=== PATIENT | female | born 1960 | race Caucasian/White ===

== ENCOUNTER 2019-02-10 16:53 | Inpatient (IN) | payer BC, OTHER ==
[2019-02-10] MEDS ORDERED: HYDROmorphone 1 MG/ML Syringe IVPUSH ONE (16:59)
[2019-02-10] MEDS ORDERED: Ondansetron 4 MG/2 ML SDV IVPUSH ONE (17:00)
[2019-02-10] MEDS ORDERED: Sodium Chloride 0.9% 1,000 ML IV ONE (17:00)
[2019-02-10] MEDS ORDERED: Ketorolac 30 MG/ML SDV IVPUSH ONE (17:00)
[2019-02-10] MEDS ORDERED: Piperacillin/Tazobactam 4.5 GM in Sodium Chloride 0.9% 100 ML IV ONE (17:04)
--- NOTE | 2019-02-10 17:08 | EDM.PDOC ---
ED HPI GENERAL MEDICAL PROBLEM - General Chief Complaint: Abdominal Pain Stated Complaint: UNKNOWN Time Seen by Provider: 02/10/19 16:54 - History of Present Illness INITIAL COMMENTS - FREE TEXT/NARRATIVE: HISTORY AND PHYSICAL: History of present illness: Patient a 58-year-old white female history diverticulitis who presents with concern of acute lower abdominal pain consistent with prior diverticulitis exacerbations. She did take a Percocet and initiate empiric antibiotics but this is worse than usual and associated with chills she denies fever denies urinary symptoms or other concern. Review of systems: As per history of present illness and below otherwise all systems reviewed and negative. Past medical history: As per history of present illness and as reviewed below otherwise noncontributory. Surgical history: As per history of present illness and as reviewed below otherwise noncontributory. Social history: No reported history of drug or alcohol abuse. Family history: As per history of present illness and as reviewed below otherwise noncontributory. Physical exam: HEENT: Atraumatic, normocephalic, pupils reactive, negative for conjunctival pallor or scleral icterus, mucous membranes dry throat clear, neck supple, nontender, trachea midline. Lungs: Clear to auscultation, breath sounds equal bilaterally, chest nontender. Heart: S1S2, regular, negative for clicks, rubs, or JVD. Abdomen: Soft, nondistended, tenderness across lower abdomen greatest in the left abdomen Negative for masses or hepatosplenomegaly. Negative for costovertebral tenderness. Pelvis: Stable nontender. Genitourinary: Deferred. Rectal: Deferred. Extremities: Atraumatic, negative for cords or calf pain. Neurovascular unremarkable. Neuro: Awake, alert, oriented. Cranial nerves II through XII unremarkable. Cerebellum unremarkable. Motor and sensory unremarkable throughout. Exam nonfocal. Diagnostics: CBC CMP UA chest x-ray blood culture [address] abdomen and pelvis Therapeutics: Saline 1 L bolus Zosyn 4.5 mg IV Dilaudid 1 mg IV Toradol 30 mg IV Zofran 4 mg IV Impression: #1 acute abdominal pain with history of diverticulitis Definitive disposition and diagnosis as appropriate pending reevaluation and review of above. Left Lower Abdominal Pain Score (Numeric/FACES): 7 - Related Data Allergies Allergy/AdvReac Type Severity Reaction Status Date / Time No Known Allergies Allergy Verified 02/10/19 17:01 Home Meds: Home Meds Olmesartan [Benicar] 10 mg PO DAILY 03/20/15 [History] hydroCHLOROthiazide [Hydrochlorothiazide] 12.5 mg PO DAILY 03/20/15 [History] Aspirin [Halfprin] 81 mg PO DAILY 10/01/15 [History] [place]-3 Fatty Acids [Fish Oil] 300 mg PO DAILY 10/01/15 [History] Past Medical History HEENT History: Reports: None Cardiovascular History: Reports: Hypertension Respiratory History: Reports: None Gastrointestinal History: Reports: Cholelithiasis, Other (See Below) Other Gastrointestinal History: diverticulitis Genitourinary History: Reports: None D[employer]CH[employer]IC History: Reports: Musculoskeletal History: Reports: None Neurological History: Reports: None Psychiatric History: Reports: None Endocrine/Metabolic History: Reports: None Hematologic History: Reports: None Immunologic History: Reports: None Oncologic (Cancer) History: Reports: None Dermatologic History: Reports: None - Infectious Disease History Infectious Disease History: Reports: Chicken Pox - Past Surgical History Head Surgeries/Procedures: Reports: None Female Surgical History: Reports: Hysterectomy Social & Family History - Family History Family Medical History: Noncontributory - Tobacco Use Smoking Status *Q: Never Smoker - Caffeine Use Caffeine Use: Reports: Soda - Recreational Drug Use Recreational Drug Use: No ED ROS GENERAL - Review of Systems Review Of Systems: ROS reveals no pertinent complaints other than HPI. ED EXAM, GENERAL - Physical Exam Exam: See Below (See dictation) Course - Vital Signs Last Recorded V/S: Last Vital Signs Temp 36.7 C 02/10/19 16:56 Pulse 86 02/10/19 18:10 Resp 15 02/10/19 18:10 BP 111/65 02/10/19 18:10 Pulse Ox 97 02/10/19 18:10 - Orders/Labs/Meds Orders: Active Orders 24 hr Category Date Time Status Abdomen Pelvis wo Cont [CT] Stat Exams 02/10/19 16:59 Taken CULTURE BLOOD [BC] Stat Lab 02/10/19 17:05 Received CULTURE BLOOD [BC] Stat Lab 02/10/19 17:09 Received UA RFX KEEGAN AND CULT IF INDIC [URIN] Stat Lab 02/10/19 16:59 Ordered Blood Culture x2 Reflex Set [OM.PC] Stat Oth 10/20/19 16:59 Ordered Labs: Laboratory Tests 02/10/19 02/10/19 02/10/19 Range/Units 17:05 17:05 17:05 WBC 6.45 (4.0-11.0) K/uL RBC 4.15 L (4.30-5.90) M/uL Hgb 13.0 (12.0-16.0) g/dL Hct 37.9 (36.0-46.0) % MCV 91.3 (80.0-98.0) fL MCH 31.3 (27.0-32.0) pg MCHC 34.3 (31.0-37.0) g/dL RDW Std Deviation 40.9 (28.0-62.0) fl RDW Coeff of Rosa 12 (11.0-15.0) % Plt Count 267 (150-400) K/uL MPV 9.50 (7.40-12.00) fL Neut % (Auto) 83.4 H (48.0-80.0) % Lymph % (Auto) 14.3 L (16.0-40.0) % [place] % (Auto) 0.6 (0.0-15.0) % Eos % (Auto) 1.4 (0.0-7.0) % Baso % (Auto) 0.3 (0.0-1.5) % Neut # (Auto) 5.4 (1.4-5.7) K/uL Lymph # (Auto) 0.9 (0.6-2.4) K/uL [place] # (Auto) 0.0 (0.0-0.8) K/uL Eos # (Auto) 0.1 (0.0-0.7) K/uL Baso # (Auto) 0.0 (0.0-0.1) K/uL Nucleated RBC % 0.0 /100WBC Nucleated RBCs # 0 K/uL INR 0.99 Lactate (0.20-2.00) mmol/L Sodium 142 (136-145) mmol/L Potassium 3.2 L (3.5-5.1) mmol/L Chloride 106 (98-107) mmol/L Carbon Dioxide 27.3 (21.0-32.0) mmol/L BUN 16 (7.0-18.0) mg/dL Creatinine 1.3 H (0.6-1.0) mg/dL Est Cr Clr Drug Dosing 45.87 mL/min Estimated GFR (MDRD) 42.1 ml/min Glucose 109 H (74-106) mg/dL Calcium 8.7 (8.5-10.1) mg/dL Total Bilirubin 0.4 (0.2-1.0) mg/dL AST 14 L (15-37) IU/L ALT 18 (14-63) IU/L Alkaline Phosphatase 69 (46-116) U/L Total Protein 7.4 (6.4-8.2) g/dL Albumin 3.7 (3.4-5.0) g/dL Globulin 3.7 (2.6-4.0) g/dL Albumin/Globulin Ratio 1.0 (0.9-1.6) Lipase 191 (73-393) U/L 02/10/19 Range/Units 17:05 WBC (4.0-11.0) K/uL RBC (4.30-5.90) M/uL Hgb (12.0-16.0) g/dL Hct (36.0-46.0) % MCV (80.0-98.0) fL MCH (27.0-32.0) pg MCHC (31.0-37.0) g/dL RDW Std Deviation (28.0-62.0) fl RDW Coeff of Rosa (11.0-15.0) % Plt Count (150-400) K/uL MPV (7.40-12.00) fL Neut % (Auto) (48.0-80.0) % Lymph % (Auto) (16.0-40.0) % [place] % (Auto) (0.0-15.0) % Eos % (Auto) (0.0-7.0) % Baso % (Auto) (0.0-1.5) % Neut # (Auto) (1.4-5.7) K/uL Lymph # (Auto) (0.6-2.4) K/uL [place] # (Auto) (0.0-0.8) K/uL Eos # (Auto) (0.0-0.7) K/uL Baso # (Auto) (0.0-0.1) K/uL Nucleated RBC % /100WBC Nucleated RBCs # K/uL INR Lactate 1.9 (0.20-2.00) mmol/L Sodium (136-145) mmol/L Potassium (3.5-5.1) mmol/L Chloride (98-107) mmol/L Carbon Dioxide (21.0-32.0) mmol/L BUN (7.0-18.0) mg/dL Creatinine (0.6-1.0) mg/dL Est Cr Clr Drug Dosing mL/min Estimated GFR (MDRD) ml/min Glucose (74-106) mg/dL Calcium (8.5-10.1) mg/dL Total Bilirubin (0.2-1.0) mg/dL AST (15-37) IU/L ALT (14-63) IU/L Alkaline Phosphatase (46-116) U/L Total Protein (6.4-8.2) g/dL Albumin (3.4-5.0) g/dL Globulin (2.6-4.0) g/dL Albumin/Globulin Ratio (0.9-1.6) Lipase (73-393) U/L Meds: Medications Discontinued Medications Generic Name Dose Route Start Last Admin Trade Name Freq PRN Reason Stop Dose Admin Hydromorphone HCl 1 mg 02/10/19 16:59 02/10/19 17:14 Dilaudid IVPUSH 02/10/19 17:00 1 mg ONETIME ONE Administration Sodium Chloride 1,000 mls @ 999 mls/hr 02/10/19 17:00 02/10/19 17:10 Normal Saline IV 02/10/19 18:00 999 mls/hr .Bolus ONE Administration Piperacillin Sod/Tazobactam 100 mls @ 100 mls/hr 02/10/19 17:04 02/10/19 17: 35 Sod 4.5 gm/ Sodium Chloride IV 02/10/19 18:03 100 mls/hr ONETIME ONE Administration Ketorolac Tromethamine 30 mg 02/10/19 17:00 02/10/19 17:13 Toradol IVPUSH 02/10/19 17:01 30 mg ONETIME ONE Administration Ondansetron HCl 4 mg 02/10/19 17:00 02/10/19 17:11 Zofran IVPUSH 02/10/19 17:01 4 mg ONETIME ONE Administration Departure - Departure Time of Disposition: 18:49 Disposition: Refer to Observation Condition: Good Clinical Impression: Abdominal pain Qualifiers: Abdominal location: left lower quadrant Qualified Code(s): R10.32 - Left lower quadrant pain Diverticulitis Qualifiers: Diverticulitis site: large intestine Diverticulitis bleeding: without bleeding Diverticulitis complication: without perforation or abscess Qualified Code(s): K57.32 - Diverticulitis of large intestine without perforation or abscess without bleeding - Discharge Information Referrals: PCP,Unknown [Primary Care Provider] - Forms: ED Department Discharge - My Orders Last 24 Hours: My Active Orders 02/10/19 16:59 Abdomen Pelvis wo Cont [CT] Stat UA RFX KEEGAN AND CULT IF INDIC [URIN] Stat Blood Culture x2 Reflex Set [OM.PC] Stat 02/10/19 17:05 CULTURE BLOOD [BC] Stat 02/10/19 17:09 CULTURE BLOOD [BC] Stat - Assessment/Plan Last 24 Hours: My Active Orders 02/10/19 16:59 Abdomen Pelvis wo Cont [CT] Stat UA RFX KEEGAN AND CULT IF INDIC [URIN] Stat Blood Culture x2 Reflex Set [OM.PC] Stat 02/10/19 17:05 CULTURE BLOOD [BC] Stat 02/10/19 17:09 CULTURE BLOOD [BC] Stat
[2019-02-10 17:37] LABS: CARBON DIOXIDE,CO2 27.3 mmol/L (21.0-32.0); POTASSIUM,K 3.2 mmol/L (3.5-5.1)
--- NOTE | 2019-02-10 18:18 | CR ---
INDICATION: LOwer chest pain TECHNIQUE: Chest 1 view. COMPARISON: 10/01/15 FINDINGS: Cardiovascular and mediastinum: Heart size and vasculature are normal in caliber and appearance. Mediastinum is within normal limits. Lungs and pleural space: Lungs are clear. No sign of infiltrate or mass. No sign of pleural effusion. No pneumothorax. Bones and soft tissues: No significant findings. IMPRESSION: Unremarkable chest. Dictated by: Guido Tomas MD @ 02/10/2019 18:16:37 (Electronically Signed)
--- NOTE | 2019-02-10 19:13 | CT ---
INDICATION: Lower abdominal pain. History of diverticulitis. TECHNIQUE: CT abdomen and pelvis acquired without IV contrast. COMPARISON: CT 10/01/2015 FINDINGS: Lower chest: Minimal bibasilar atelectasis. Liver: Unremarkable. Spleen: No acute abnormality. Pancreas: Unremarkable. Gallbladder and bile ducts: Mild prominence of the common bile duct is likely secondary to reservoir effect of cholecystectomy. Kidneys: Scarring and atrophy of the upper pole of the left kidney again noted. No acute renal abnormality. Adrenal glands: Unremarkable. GI tract: Tiny hiatal hernia. There is colonic diverticulosis. There is wall thickening and pericolonic inflammatory fat stranding adjacent to the sigmoid colon. Associated thickening of the left lateral pelvic fascia. There appear to be a few small foci of extraluminal gas consistent with microperforation and small phlegmon measuring 2.4 x 1.4 cm (image 145). No drainable abscess. The appendix is normal. No acute small bowel abnormality. Vascular structures: No sign of aneurysm. Circumaortic left renal vein. Lymph nodes: Unremarkable. Miscellaneous: No ascites. No free air. Tiny fat containing umbilical hernia. Pelvic Organs: Urinary bladder is normal. Hysterectomy. Bones: No acute abnormality. No suspicious bone lesion. Stable small sclerotic lesion in the left iliac bone likely representing a bone island. IMPRESSION: Acute diverticulitis of the sigmoid colon. A few small foci of extraluminal gas consistent with microperforation and small phlegmon formation. No generalized free intraperitoneal gas. No drainable fluid collection. Dictated by Sin Pollock MD @ 02/10/2019 7:10:16 PM Please note that all CT scans at this facility use dose modulation, iterative reconstruction, and/or weight-based dosing when appropriate to reduce radiation dose to as low as reasonably achievable. Dictated by: Sin Pollock MD @ 02/10/2019 19:10:25 (Electronically Signed)
[2019-02-10] MEDS: Sodium Chloride 0.9% 1,000 ML IV SCH (20:52)
--- NOTE | 2019-02-10 22:11 | PCM.SN ---
- Free Text/Narrative Note: another flare up recurrent diverticulitis; npo/iv abx as you are doing; when pain subide, then start po; tamy po then home on po abx for a total treatment of 3 wks abx; 4X recurrency in 4 yrs; pt would benefit from colorectal surgeon consult for possible pre empt surgical treatment; 2 months later, when flare up resolve, would benefit from colonoscopy; will follow pt w you; tks for the consult and care of this nice pt; dict [id number]
[2019-02-10] MEDS ORDERED: Sodium Chloride 0.9% with KCl 1,000 ML IV SCH (22:15)
[2019-02-10] MEDS ORDERED: Morphine 2 MG/ML Syringe IVPUSH PRN (22:28)
--- NOTE | 2019-02-10 22:33 | PCM.HP.2 ---
H&P History of Present Illness - General Date of Service: 02/10/19 Admit Problem/Dx: Admission Diagnosis/Problem Admission Diagnosis/Problem Abdominal pain - History of Present Illness Initial Comments - Free Text/Narative: 58 yo female with pmh of recurrent diverticulitis who presents with one day history of abdominal pain and chills. She denies any diarreha or blood in the stool. Her last colonoscopy was five years ago. She reports getting diverticulitis as much as 4 times a year. Left Lower Abdominal Pain Score (Numeric/FACES): 7 - Related Data Allergies/Adverse Reactions: Allergies Allergy/AdvReac Type Severity Reaction Status Date / Time No Known Allergies Allergy Verified 02/10/19 20:27 Home Medications: Home Meds Olmesartan [Benicar] 10 mg PO DAILY 03/20/15 [History] hydroCHLOROthiazide [Hydrochlorothiazide] 12.5 mg PO DAILY 03/20/15 [History] Aspirin [Halfprin] 81 mg PO DAILY 10/01/15 [History] Past Medical History HEENT History: Reports: None Cardiovascular History: Reports: Hypertension Respiratory History: Reports: None Gastrointestinal History: Reports: Cholelithiasis, Other (See Below) Other Gastrointestinal History: diverticulitis Genitourinary History: Reports: None OFFICE HELPER History: Reports: Musculoskeletal History: Reports: None Neurological History: Reports: None Psychiatric History: Reports: None Endocrine/Metabolic History: Reports: None Hematologic History: Reports: None Immunologic History: Reports: None Oncologic (Cancer) History: Reports: None Dermatologic History: Reports: None - Infectious Disease History Infectious Disease History: Reports: Chicken Pox - Past Surgical History Head Surgeries/Procedures: Reports: None GI Surgical History: Reports: Cholecystectomy Female Surgical History: Reports: Hysterectomy Social & Family History - Family History Family Medical History: Noncontributory - Tobacco Use Smoking Status *Q: Never Smoker Second Hand Smoke Exposure: No - Caffeine Use Caffeine Use: Reports: Soda - Recreational Drug Use Recreational Drug Use: No H&P Review of Systems - Review of Systems: Review Of Systems: ROS reveals no pertinent complaints other than HPI. Exam - Exam Exam: See Below - Vital Signs Vital Signs: Last Vital Signs Temp 36.4 C 02/10/19 20:15 Pulse 78 02/10/19 20:15 Resp 17 02/10/19 20:15 BP 127/79 02/10/19 20:15 Pulse Ox 97 02/10/19 20:15 Weight: 79.549 kg - Exam General: Alert, Oriented HEENT: Mucosa Moist & [place] Neck: Supple Lungs: Clear to Auscultation, Normal Respiratory Effort Cardiovascular: Regular Rate, Regular Rhythm GI/Abdominal Exam: Normal Bowel Sounds, Soft, Non-Tender, No Distention Extremities: No Pedal Edema Skin: Warm, Dry, Intact - Patient Data Lab Results Last 24 hrs: Laboratory Results - last 24 hr 02/10/19 02/10/19 02/10/19 Range/Units 17:05 17:05 17:05 WBC 6.45 (4.0-11.0) K/uL RBC 4.15 L (4.30-5.90) M/uL Hgb 13.0 (12.0-16.0) g/dL Hct 37.9 (36.0-46.0) % MCV 91.3 (80.0-98.0) fL MCH 31.3 (27.0-32.0) pg MCHC 34.3 (31.0-37.0) g/dL RDW Std Deviation 40.9 (28.0-62.0) fl RDW Coeff of Rosa 12 (11.0-15.0) % Plt Count 267 (150-400) K/uL MPV 9.50 (7.40-12.00) fL Neut % (Auto) 83.4 H (48.0-80.0) % Lymph % (Auto) 14.3 L (16.0-40.0) % [place] % (Auto) 0.6 (0.0-15.0) % Eos % (Auto) 1.4 (0.0-7.0) % Baso % (Auto) 0.3 (0.0-1.5) % Neut # (Auto) 5.4 (1.4-5.7) K/uL Lymph # (Auto) 0.9 (0.6-2.4) K/uL [place] # (Auto) 0.0 (0.0-0.8) K/uL Eos # (Auto) 0.1 (0.0-0.7) K/uL Baso # (Auto) 0.0 (0.0-0.1) K/uL Nucleated RBC % 0.0 /100WBC Nucleated RBCs # 0 K/uL INR 0.99 Lactate (0.20-2.00) mmol/L Sodium 142 (136-145) mmol/L Potassium 3.2 L (3.5-5.1) mmol/L Chloride 106 (98-107) mmol/L Carbon Dioxide 27.3 (21.0-32.0) mmol/L BUN 16 (7.0-18.0) mg/dL Creatinine 1.3 H (0.6-1.0) mg/dL Est Cr Clr Drug Dosing 45.87 mL/min Estimated GFR (MDRD) 42.1 ml/min Glucose 109 H (74-106) mg/dL Calcium 8.7 (8.5-10.1) mg/dL Total Bilirubin 0.4 (0.2-1.0) mg/dL AST 14 L (15-37) IU/L ALT 18 (14-63) IU/L Alkaline Phosphatase 69 (46-116) U/L Total Protein 7.4 (6.4-8.2) g/dL Albumin 3.7 (3.4-5.0) g/dL Globulin 3.7 (2.6-4.0) g/dL Albumin/Globulin Ratio 1.0 (0.9-1.6) Lipase 191 (73-393) U/L Urine Color Urine Appearance Urine pH (5.0-8.0) Ur Specific [place] (1.001-1.035) Urine Protein (NEGATIVE) mg/dL Urine Glucose (UA) (NEGATIVE) mg/dL Urine Ketones (NEGATIVE) mg/dL Urine Occult Blood (NEGATIVE) Urine Nitrite (NEGATIVE) Urine Bilirubin (NEGATIVE) Urine Urobilinogen (<2.0) EU/dL Ur Leukocyte Esterase (NEGATIVE) 02/10/19 02/10/19 Range/Units 17:05 19:35 WBC (4.0-11.0) K/uL RBC (4.30-5.90) M/uL Hgb (12.0-16.0) g/dL Hct (36.0-46.0) % MCV (80.0-98.0) fL MCH (27.0-32.0) pg MCHC (31.0-37.0) g/dL RDW Std Deviation (28.0-62.0) fl RDW Coeff of Rosa (11.0-15.0) % Plt Count (150-400) K/uL MPV (7.40-12.00) fL Neut % (Auto) (48.0-80.0) % Lymph % (Auto) (16.0-40.0) % [place] % (Auto) (0.0-15.0) % Eos % (Auto) (0.0-7.0) % Baso % (Auto) (0.0-1.5) % Neut # (Auto) (1.4-5.7) K/uL Lymph # (Auto) (0.6-2.4) K/uL [place] # (Auto) (0.0-0.8) K/uL Eos # (Auto) (0.0-0.7) K/uL Baso # (Auto) (0.0-0.1) K/uL Nucleated RBC % /100WBC Nucleated RBCs # K/uL INR Lactate 1.9 (0.20-2.00) mmol/L Sodium (136-145) mmol/L Potassium (3.5-5.1) mmol/L Chloride (98-107) mmol/L Carbon Dioxide (21.0-32.0) mmol/L BUN (7.0-18.0) mg/dL Creatinine (0.6-1.0) mg/dL Est Cr Clr Drug Dosing mL/min Estimated GFR (MDRD) ml/min Glucose (74-106) mg/dL Calcium (8.5-10.1) mg/dL Total Bilirubin (0.2-1.0) mg/dL AST (15-37) IU/L ALT (14-63) IU/L Alkaline Phosphatase (46-116) U/L Total Protein (6.4-8.2) g/dL Albumin (3.4-5.0) g/dL Globulin (2.6-4.0) g/dL Albumin/Globulin Ratio (0.9-1.6) Lipase (73-393) U/L Urine Color YELLOW Urine Appearance CLEAR Urine pH 5.5 (5.0-8.0) Ur Specific [place] 1.020 (1.001-1.035) Urine Protein NEGATIVE (NEGATIVE) mg/dL Urine Glucose (UA) NEGATIVE (NEGATIVE) mg/dL Urine Ketones NEGATIVE (NEGATIVE) mg/dL Urine Occult Blood NEGATIVE (NEGATIVE) Urine Nitrite NEGATIVE (NEGATIVE) Urine Bilirubin NEGATIVE (NEGATIVE) Urine Urobilinogen 0.2 (<2.0) EU/dL Ur Leukocyte Esterase NEGATIVE (NEGATIVE) Result Diagrams: 02/11/19 05:11 02/11/19 05:33 Problem List Initiated/Reviewed/Updated: Yes Orders Last 24hrs: Active Orders 24 hr Category Date Time Status Patient Status [ADT] Stat ADT 02/10/19 18:50 Active Antiembolic Devices [RC] PER UNIT ROUTINE Care 02/10/19 22:29 Ordered Oxygen Therapy [RC] PRN Care 02/10/19 22:28 Ordered Up ad Sofia [RC] ASDIRECTED Care 02/10/19 22:28 Ordered VTE/DVT Education [RC] PER UNIT ROUTINE Care 02/10/19 22:28 Ordered Vital Signs [RC] Q4H Care 02/10/19 22:28 Ordered NPO Now [Nothing per Oral Now Diet] [DIET] Diet 02/11/19 Breakfast Active CBC WITH AUTO DIFF [HEME] AM Lab 02/11/19 05:11 Ordered COMPREHENSIVE METABOLIC PN,CMP [CHEM] AM Lab 02/11/19 05:11 Ordered CULTURE BLOOD [BC] Stat Lab 02/10/19 17:05 Received CULTURE BLOOD [BC] Stat Lab 02/10/19 17:09 Received Heparin Sodium Med 02/10/19 22:30 Ordered 5,000 units SUBCUT Q8H Morphine Med 02/10/19 22:28 Ordered 2 mg IVPUSH Q2H PRN Ondansetron [Zofran] Med 02/10/19 20:41 Active 4 mg IVPUSH Q4H PRN Piperacillin/Tazobactam [Piperacil-Tazobact] 3.375 gm Med 02/10/19 23:00 Active Sodium Chloride 0.9% [Normal Saline] 50 ml IV Q6H Sodium Chloride 0.9% [Normal Saline] 1,000 ml Med 02/10/19 20:45 Active IV ASDIRECTED Sodium Chloride 0.9% with KCl [Normal Saline with 40 Med 02/10/19 22:15 Active mEq KCl] 1,000 ml IV ASDIRECTED Blood Culture x2 Reflex Set [OM.PC] Stat Oth 02/10/19 16:59 Ordered Sequential Compression Device [OM.PC] Per Unit Routine Oth 02/10/19 22:28 Ordered Resuscitation Status Routine Resus Stat 02/10/19 22:28 Ordered Medication Orders Heparin Sodium (Porcine) (Heparin Sodium) 5,000 units SUBCUT Q8H CONOR Piperacillin Sod/Tazobactam (Sod 3.375 gm/ Sodium Chloride) 50 mls @ 100 mls/ hr IV Q6H [place] Sodium Chloride (Normal Saline) 1,000 mls @ 125 mls/hr IV ASDIRECTED [facility] Last Admin: 02/10/19 20:52 Dose: 125 mls/hr Potassium Chloride/Sodium Chloride (Normal Saline With 40 Meq Kcl) 1,000 mls @ 150 mls/hr IV ASDIRECTED CONOR Stop: 02/11/19 04:54 Morphine Sulfate (Morphine) 2 mg IVPUSH Q2H PRN PRN Reason: Pain (severe 7-10) Stop: 02/11/19 22:29 Ondansetron HCl (Zofran) 4 mg IVPUSH Q4H PRN PRN Reason: Nausea Assessment/Plan Comment:: 58 yo female admitted with acute diverticulitis of sigmoid colon with microperforation. Dr. Schneider has been consulted. We will treat with IV Zosyn and bowel rest.
[2019-02-10] MEDS: Piperacillin/Tazobactam 3.375 GM in Sodium Chloride 0.9% 50 ML IV SCH (23:09)
[2019-02-10] MEDS: Heparin Sodium 5,000 Units/ML Vial SUBCUT SCH (23:12)
--- NOTE | 2019-02-11 03:53 | CONS ---
DATE OF CONSULTATION: DATE OF : 1960 PRIMARY CARE PHYSICIAN: Unknown PCP REASON FOR CONSULTATION: Consult from Dr. Weiss and consult from ER, Dr. Akbar John. Concerning question is recurrent diverticulitis flare-up. 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 Pain is 10/10, severe enough, and drove her to seek help in the emergency room, and CAT scan shows sigmoid colon wall thickening as well as a couple of extraluminal gas and small collection of 2.1 cm, not drainable. The patient was admitted for further management. The patient knows that she had diverticulitis flare-up 4 years ago and also have more than 4 episodes of recurrent diverticulitis for the last 4 years, had colonoscopy done in [place] 6 years ago and looked for possible pancolonic diverticulosis. PAST MEDICAL HISTORY: Significant for no diabetes, RI, CVA. The patient has hypertension. PAST SURGICAL HISTORY: Colonoscopy and normal vaginal delivery x5 and laparoscopic cholecystectomy. SOCIAL HISTORY: Denied tobacco or alcohol abuse. FAMILY HISTORY: Noncontributory. ALLERGIES: Please refer to nursing for details. MEDICATION: Please refer to nursing for details. PHYSICAL EXAMINATION: GENERAL: A very pleasant lady, in no acute distress. HEENT: Normocephalic and atraumatic. Sclerae are anicteric. LUNGS: Clear to auscultation. HEART: Regular rate and rhythm. ABDOMEN: Soft, nondistended. No pulsating tender midline abdominal structure. Well-healed laparoscopic surgery. Exquisite tenderness at the left lower quadrant, very low, almost in the inguinal area. No rebound tenderness. No guarding. LABORATORY DATA: White count 6. Potassium is 3.2, BUN is 16, creatinine is 1.3. UA; no signs or symptoms of urinary tract infection. CAT scan report as alluded to. IMPRESSION: Recurrent flare-up diverticulitis almost a 5th time in the last 4 years and also have colonoscopy document a pancolonic diverticula. The patient would benefit from conservative management, IV antibiotics at least for 3 weeks p.o. and IV together. Start oral diet when pain is managed and then 2 months later have a colonoscopy. With the patient's age [age] years old with 4 times recurrent diverticulitis, the patient may be a candidate for segmental colon resection. The patient should think about that once the flare-up of diverticulitis is resolved. In the unlikelihood that the patient does not to respond to antibiotic treatment. The patient will need emergency surgery that would be Heather procedure and will carry a colostomy in about 6 months to one year and then connect back together on a 2nd stage surgery. All has been discussed with the patient. The patient voiced understanding. We will follow the patient with you. Thanks for the consult and care of this pleasant lady. As always, thank you for the kind referral. ARON YING /[id number] COLTEN
[2019-02-11] MEDS: Piperacillin/Tazobactam 3.375 GM in Sodium Chloride 0.9% 50 ML IV SCH ×4 (05:58→23:52)
[2019-02-11] MEDS: Heparin Sodium 5,000 Units/ML Vial SUBCUT SCH ×3 (06:03→22:00)
[2019-02-11 06:12] LABS: CARBON DIOXIDE,CO2 26.2 mmol/L (21.0-32.0); POTASSIUM,K 4.4 mmol/L (3.5-5.1)
--- NOTE | 2019-02-11 09:13 | PCM.SURGPN ---
- General Info Date of Service: 02/11/19 Functional Status: Reports: Pain Controlled ("pain is much better", denied n/v, and asked for ice chips) - Patient Data Vitals - Most Recent: Last Vital Signs Temp 98.3 F 02/11/19 07:15 Pulse 74 02/11/19 07:15 Resp 17 02/11/19 07:15 BP 115/69 02/11/19 07:15 Pulse Ox 96 02/11/19 07:15 Weight - Most Recent: 175 lb 6 oz I&O - Last 24 Hours: Intake & Output 02/10/19 02/11/19 02/11/19 22:59 06:59 14:59 Intake Total 1237 Output Total 0 Balance 1237 Lab Results Last 24 Hrs: Laboratory Results - last 24 hr 02/10/19 02/10/19 02/10/19 Range/Units 17:05 17:05 17:05 WBC 6.45 (4.0-11.0) K/uL RBC 4.15 L (4.30-5.90) M/uL Hgb 13.0 (12.0-16.0) g/dL Hct 37.9 (36.0-46.0) % MCV 91.3 (80.0-98.0) fL MCH 31.3 (27.0-32.0) pg MCHC 34.3 (31.0-37.0) g/dL RDW Std Deviation 40.9 (28.0-62.0) fl RDW Coeff of Rosa 12 (11.0-15.0) % Plt Count 267 (150-400) K/uL MPV 9.50 (7.40-12.00) fL Neut % (Auto) 83.4 H (48.0-80.0) % Lymph % (Auto) 14.3 L (16.0-40.0) % [place] % (Auto) 0.6 (0.0-15.0) % Eos % (Auto) 1.4 (0.0-7.0) % Baso % (Auto) 0.3 (0.0-1.5) % Neut # (Auto) 5.4 (1.4-5.7) K/uL Lymph # (Auto) 0.9 (0.6-2.4) K/uL [place] # (Auto) 0.0 (0.0-0.8) K/uL Eos # (Auto) 0.1 (0.0-0.7) K/uL Baso # (Auto) 0.0 (0.0-0.1) K/uL Nucleated RBC % 0.0 /100WBC Nucleated RBCs # 0 K/uL INR 0.99 Lactate (0.20-2.00) mmol/L Sodium 142 (136-145) mmol/L Potassium 3.2 L (3.5-5.1) mmol/L Chloride 106 (98-107) mmol/L Carbon Dioxide 27.3 (21.0-32.0) mmol/L BUN 16 (7.0-18.0) mg/dL Creatinine 1.3 H (0.6-1.0) mg/dL Est Cr Clr Drug Dosing 45.87 mL/min Estimated GFR (MDRD) 42.1 ml/min Glucose 109 H (74-106) mg/dL Calcium 8.7 (8.5-10.1) mg/dL Total Bilirubin 0.4 (0.2-1.0) mg/dL AST 14 L (15-37) IU/L ALT 18 (14-63) IU/L Alkaline Phosphatase 69 (46-116) U/L Total Protein 7.4 (6.4-8.2) g/dL Albumin 3.7 (3.4-5.0) g/dL Globulin 3.7 (2.6-4.0) g/dL Albumin/Globulin Ratio 1.0 (0.9-1.6) Lipase 191 (73-393) U/L Urine Color Urine Appearance Urine pH (5.0-8.0) Ur Specific [place] (1.001-1.035) Urine Protein (NEGATIVE) mg/dL Urine Glucose (UA) (NEGATIVE) mg/dL Urine Ketones (NEGATIVE) mg/dL Urine Occult Blood (NEGATIVE) Urine Nitrite (NEGATIVE) Urine Bilirubin (NEGATIVE) Urine Urobilinogen (<2.0) EU/dL Ur Leukocyte Esterase (NEGATIVE) 02/10/19 02/10/19 02/11/19 Range/Units 17:05 19:35 05:11 WBC 12.82 H (4.0-11.0) K/uL RBC 3.53 L (4.30-5.90) M/uL Hgb 11.1 L (12.0-16.0) g/dL Hct 32.5 L (36.0-46.0) % MCV 92.1 (80.0-98.0) fL MCH 31.4 (27.0-32.0) pg MCHC 34.2 (31.0-37.0) g/dL RDW Std Deviation 42.0 (28.0-62.0) fl RDW Coeff of Rosa 13 (11.0-15.0) % Plt Count 183 (150-400) K/uL MPV 9.30 (7.40-12.00) fL Neut % (Auto) 87.4 H (48.0-80.0) % Lymph % (Auto) 7.2 L (16.0-40.0) % [place] % (Auto) 5.0 (0.0-15.0) % Eos % (Auto) 0.2 (0.0-7.0) % Baso % (Auto) 0.2 (0.0-1.5) % Neut # (Auto) 11.2 H (1.4-5.7) K/uL Lymph # (Auto) 0.9 (0.6-2.4) K/uL [place] # (Auto) 0.6 (0.0-0.8) K/uL Eos # (Auto) 0.0 (0.0-0.7) K/uL Baso # (Auto) 0.0 (0.0-0.1) K/uL Nucleated RBC % 0.0 /100WBC Nucleated RBCs # 0 K/uL INR Lactate 1.9 (0.20-2.00) mmol/L Sodium (136-145) mmol/L Potassium (3.5-5.1) mmol/L Chloride (98-107) mmol/L Carbon Dioxide (21.0-32.0) mmol/L BUN (7.0-18.0) mg/dL Creatinine (0.6-1.0) mg/dL Est Cr Clr Drug Dosing mL/min Estimated GFR (MDRD) ml/min Glucose (74-106) mg/dL Calcium (8.5-10.1) mg/dL Total Bilirubin (0.2-1.0) mg/dL AST (15-37) IU/L ALT (14-63) IU/L Alkaline Phosphatase (46-116) U/L Total Protein (6.4-8.2) g/dL Albumin (3.4-5.0) g/dL Globulin (2.6-4.0) g/dL Albumin/Globulin Ratio (0.9-1.6) Lipase (73-393) U/L Urine Color YELLOW Urine Appearance CLEAR Urine pH 5.5 (5.0-8.0) Ur Specific [place] 1.020 (1.001-1.035) Urine Protein NEGATIVE (NEGATIVE) mg/dL Urine Glucose (UA) NEGATIVE (NEGATIVE) mg/dL Urine Ketones NEGATIVE (NEGATIVE) mg/dL Urine Occult Blood NEGATIVE (NEGATIVE) Urine Nitrite NEGATIVE (NEGATIVE) Urine Bilirubin NEGATIVE (NEGATIVE) Urine Urobilinogen 0.2 (<2.0) EU/dL Ur Leukocyte Esterase NEGATIVE (NEGATIVE) 02/11/19 Range/Units 05:33 WBC (4.0-11.0) K/uL RBC (4.30-5.90) M/uL Hgb (12.0-16.0) g/dL Hct (36.0-46.0) % MCV (80.0-98.0) fL MCH (27.0-32.0) pg MCHC (31.0-37.0) g/dL RDW Std Deviation (28.0-62.0) fl RDW Coeff of Rosa (11.0-15.0) % Plt Count (150-400) K/uL MPV (7.40-12.00) fL Neut % (Auto) (48.0-80.0) % Lymph % (Auto) (16.0-40.0) % [place] % (Auto) (0.0-15.0) % Eos % (Auto) (0.0-7.0) % Baso % (Auto) (0.0-1.5) % Neut # (Auto) (1.4-5.7) K/uL Lymph # (Auto) (0.6-2.4) K/uL [place] # (Auto) (0.0-0.8) K/uL Eos # (Auto) (0.0-0.7) K/uL Baso # (Auto) (0.0-0.1) K/uL Nucleated RBC % /100WBC Nucleated RBCs # K/uL INR Lactate (0.20-2.00) mmol/L Sodium 145 (136-145) mmol/L Potassium 4.4 (3.5-5.1) mmol/L Chloride 110 H (98-107) mmol/L Carbon Dioxide 26.2 (21.0-32.0) mmol/L BUN 14 (7.0-18.0) mg/dL Creatinine 1.3 H (0.6-1.0) mg/dL Est Cr Clr Drug Dosing 45.87 mL/min Estimated GFR (MDRD) 42.1 ml/min Glucose 99 (74-106) mg/dL Calcium 7.9 L (8.5-10.1) mg/dL Total Bilirubin 1.1 H (0.2-1.0) mg/dL AST 22 (15-37) IU/L ALT 22 (14-63) IU/L Alkaline Phosphatase 53 (46-116) U/L Total Protein 5.8 L (6.4-8.2) g/dL Albumin 2.8 L (3.4-5.0) g/dL Globulin 3.0 (2.6-4.0) g/dL Albumin/Globulin Ratio 0.9 (0.9-1.6) Lipase (73-393) U/L Urine Color Urine Appearance Urine pH (5.0-8.0) Ur Specific [place] (1.001-1.035) Urine Protein (NEGATIVE) mg/dL Urine Glucose (UA) (NEGATIVE) mg/dL Urine Ketones (NEGATIVE) mg/dL Urine Occult Blood (NEGATIVE) Urine Nitrite (NEGATIVE) Urine Bilirubin (NEGATIVE) Urine Urobilinogen (<2.0) EU/dL Ur Leukocyte Esterase (NEGATIVE) Med Orders - Current: Current Medications Heparin Sodium (Porcine) (Heparin Sodium) 5,000 units SUBCUT Q8H [facility] Last Admin: 02/11/19 06:03 Dose: 5,000 units Piperacillin Sod/Tazobactam (Sod 3.375 gm/ Sodium Chloride) 50 mls @ 100 mls/ hr IV Q6H [facility] Last Admin: 02/11/19 05:58 Dose: 100 mls/hr Sodium Chloride (Normal Saline) 1,000 mls @ 150 mls/hr IV ASDIRECTED [facility] Last Admin: 02/10/19 20:52 Dose: 125 mls/hr Morphine Sulfate (Morphine) 2 mg IVPUSH Q2H PRN PRN Reason: Pain (severe 7-10) Stop: 02/11/19 22:29 Ondansetron HCl (Zofran) 4 mg IVPUSH Q4H PRN PRN Reason: Nausea Discontinued Medications Hydromorphone HCl (Dilaudid) 1 mg IVPUSH ONETIME ONE Stop: 02/10/19 17:00 Last Admin: 02/10/19 17:14 Dose: 1 mg Sodium Chloride (Normal Saline) 1,000 mls @ 999 mls/hr IV .Bolus ONE Stop: 02/10/19 18:00 Last Admin: 02/10/19 17:10 Dose: 999 mls/hr Piperacillin Sod/Tazobactam (Sod 4.5 gm/ Sodium Chloride) 100 mls @ 100 mls/hr IV ONETIME ONE Stop: 02/10/19 18:03 Last Admin: 02/10/19 17:35 Dose: 100 mls/hr Potassium Chloride/Sodium Chloride (Normal Saline With 40 Meq Kcl) 1,000 mls @ 150 mls/hr IV ASDIRECTED [facility] Stop: 02/11/19 04:54 Last Admin: 02/10/19 23:44 Dose: 150 mls/hr Ketorolac Tromethamine (Toradol) 30 mg IVPUSH ONETIME ONE Stop: 02/10/19 17:01 Last Admin: 02/10/19 17:13 Dose: 30 mg Ondansetron HCl (Zofran) 4 mg IVPUSH ONETIME ONE Stop: 02/10/19 17:01 Last Admin: 02/10/19 17:11 Dose: 4 mg - Exam GI/Abdominal Exam: Soft (minimal t at LLQ, very low, almost to L ing area) - Problem List Review Problem List Initiated/Reviewed/Updated: Yes - My Orders Last 24 Hours: Active Orders 24 hr Category Date Time Status Patient Status [ADT] Stat ADT 02/10/19 18:50 Active Antiembolic Devices [RC] PER UNIT ROUTINE Care 02/10/19 22:29 Active Communication Order [RC] PRN Care 02/11/19 08:51 Active Oxygen Therapy [RC] PRN Care 02/10/19 22:28 Active Up ad Sofia [RC] ASDIRECTED Care 02/10/19 22:28 Active VTE/DVT Education [RC] PER UNIT ROUTINE Care 02/10/19 22:28 Active Vital Signs [RC] Q4H Care 02/10/19 22:28 Active NPO Now [Nothing per Oral Now Diet] [DIET] Diet 02/11/19 Breakfast Active CULTURE BLOOD [BC] Stat Lab 02/10/19 17:05 Received CULTURE BLOOD [BC] Stat Lab 02/10/19 17:09 Received Heparin Sodium Med 02/10/19 22:30 Active 5,000 units SUBCUT Q8H Morphine Med 02/10/19 22:28 Active 2 mg IVPUSH Q2H PRN Ondansetron [Zofran] Med 02/10/19 20:41 Active 4 mg IVPUSH Q4H PRN Piperacillin/Tazobactam [Piperacil-Tazobact] 3.375 gm Med 02/10/19 23:00 Active Sodium Chloride 0.9% [Normal Saline] 50 ml IV Q6H Sodium Chloride 0.9% [Normal Saline] 1,000 ml Med 02/10/19 20:45 Active IV ASDIRECTED Blood Culture x2 Reflex Set [OM.PC] Stat Oth 02/10/19 16:59 Ordered Sequential Compression Device [OM.PC] Per Unit Routine Oth 02/10/19 22:28 Ordered Resuscitation Status Routine Resus Stat 02/10/19 22:28 Ordered Medication Orders Heparin Sodium (Porcine) (Heparin Sodium) 5,000 units SUBCUT Q8H [facility] Last Admin: 02/11/19 06:03 Dose: 5,000 units Admin: 02/10/19 23:12 Dose: 5,000 units Piperacillin Sod/Tazobactam (Sod 3.375 gm/ Sodium Chloride) 50 mls @ 100 mls/ hr IV Q6H [facility] Last Admin: 02/11/19 05:58 Dose: 100 mls/hr Infusion: 02/10/19 23:39 Dose: 100 mls/hr Admin: 02/10/19 23:09 Dose: 100 mls/hr Sodium Chloride (Normal Saline) 1,000 mls @ 150 mls/hr IV ASDIRECTED [facility] Last Admin: 02/10/19 20:52 Dose: 125 mls/hr Morphine Sulfate (Morphine) 2 mg IVPUSH Q2H PRN PRN Reason: Pain (severe 7-10) Stop: 02/11/19 22:29 Ondansetron HCl (Zofran) 4 mg IVPUSH Q4H PRN PRN Reason: Nausea - Assessment Assessment (Free Text/Narrative):: hd#2, for recurrent diverticulitis w microperforation, on pain meds/iv abx; afeb , pain much improved; continue iv abx, start on ice chips; probably abx X 3 wks , then colonoscopy 2 mos - Plan Plan (Free Text/Narrative):: hd#2, for recurrent diverticulitis w microperforation, on pain meds/iv abx; afeb , pain much improved; continue iv abx, start on ice chips; proabably abx X 3 wks , then colonoscopy 2 months
[2019-02-11] MEDS ORDERED: Ketorolac 30 MG/ML SDV IVPUSH PRN (10:34)
--- NOTE | 2019-02-11 11:06 | PCM.PN ---
- General Info Date of Service: 02/11/19 Subjective Update: 58 y/o female admitted for acute diverticulitis. Today, doing better. Pain much more tolerable but still some intermittent pain. No fevers, vomiting, diarrhea. - Patient Data Vitals - Most Recent: Last Vital Signs Temp 36.8 C 02/11/19 07:15 Pulse 74 02/11/19 07:15 Resp 17 02/11/19 07:15 BP 115/69 02/11/19 07:15 Pulse Ox 96 02/11/19 07:15 Weight - Most Recent: 79.549 kg I&O - Last 24 Hours: Intake & Output 02/10/19 02/11/19 02/11/19 22:59 06:59 14:59 Intake Total 1237 Output Total 0 Balance 1237 Lab Results Last 24 Hours: Laboratory Results - last 24 hr 02/10/19 02/10/19 02/10/19 Range/Units 17:05 17:05 17:05 WBC 6.45 (4.0-11.0) K/uL RBC 4.15 L (4.30-5.90) M/uL Hgb 13.0 (12.0-16.0) g/dL Hct 37.9 (36.0-46.0) % MCV 91.3 (80.0-98.0) fL MCH 31.3 (27.0-32.0) pg MCHC 34.3 (31.0-37.0) g/dL RDW Std Deviation 40.9 (28.0-62.0) fl RDW Coeff of [place] 12 (11.0-15.0) % Plt Count 267 (150-400) K/uL MPV 9.50 (7.40-12.00) fL Neut % (Auto) 83.4 H (48.0-80.0) % Lymph % (Auto) 14.3 L (16.0-40.0) % [place] % (Auto) 0.6 (0.0-15.0) % Eos % (Auto) 1.4 (0.0-7.0) % Baso % (Auto) 0.3 (0.0-1.5) % Neut # (Auto) 5.4 (1.4-5.7) K/uL Lymph # (Auto) 0.9 (0.6-2.4) K/uL [place] # (Auto) 0.0 (0.0-0.8) K/uL Eos # (Auto) 0.1 (0.0-0.7) K/uL Baso # (Auto) 0.0 (0.0-0.1) K/uL Nucleated RBC % 0.0 /100WBC Nucleated RBCs # 0 K/uL INR 0.99 Lactate (0.20-2.00) mmol/L Sodium 142 (136-145) mmol/L Potassium 3.2 L (3.5-5.1) mmol/L Chloride 106 (98-107) mmol/L Carbon Dioxide 27.3 (21.0-32.0) mmol/L BUN 16 (7.0-18.0) mg/dL Creatinine 1.3 H (0.6-1.0) mg/dL Est Cr Clr Drug Dosing 45.87 mL/min Estimated GFR (MDRD) 42.1 ml/min Glucose 109 H (74-106) mg/dL Calcium 8.7 (8.5-10.1) mg/dL Total Bilirubin 0.4 (0.2-1.0) mg/dL AST 14 L (15-37) IU/L ALT 18 (14-63) IU/L Alkaline Phosphatase 69 (46-116) U/L Total Protein 7.4 (6.4-8.2) g/dL Albumin 3.7 (3.4-5.0) g/dL Globulin 3.7 (2.6-4.0) g/dL Albumin/Globulin Ratio 1.0 (0.9-1.6) Lipase 191 (73-393) U/L Urine Color Urine Appearance Urine pH (5.0-8.0) Ur Specific [place] (1.001-1.035) Urine Protein (NEGATIVE) mg/dL Urine Glucose (UA) (NEGATIVE) mg/dL Urine Ketones (NEGATIVE) mg/dL Urine Occult Blood (NEGATIVE) Urine Nitrite (NEGATIVE) Urine Bilirubin (NEGATIVE) Urine Urobilinogen (<2.0) EU/dL Ur Leukocyte Esterase (NEGATIVE) 02/10/19 02/10/19 02/11/19 Range/Units 17:05 19:35 05:11 WBC 12.82 H (4.0-11.0) K/uL RBC 3.53 L (4.30-5.90) M/uL Hgb 11.1 L (12.0-16.0) g/dL Hct 32.5 L (36.0-46.0) % MCV 92.1 (80.0-98.0) fL MCH 31.4 (27.0-32.0) pg MCHC 34.2 (31.0-37.0) g/dL RDW Std Deviation 42.0 (28.0-62.0) fl RDW Coeff of Rosa 13 (11.0-15.0) % Plt Count 183 (150-400) K/uL MPV 9.30 (7.40-12.00) fL Neut % (Auto) 87.4 H (48.0-80.0) % Lymph % (Auto) 7.2 L (16.0-40.0) % [place] % (Auto) 5.0 (0.0-15.0) % Eos % (Auto) 0.2 (0.0-7.0) % Baso % (Auto) 0.2 (0.0-1.5) % Neut # (Auto) 11.2 H (1.4-5.7) K/uL Lymph # (Auto) 0.9 (0.6-2.4) K/uL [place] # (Auto) 0.6 (0.0-0.8) K/uL Eos # (Auto) 0.0 (0.0-0.7) K/uL Baso # (Auto) 0.0 (0.0-0.1) K/uL Nucleated RBC % 0.0 /100WBC Nucleated RBCs # 0 K/uL INR Lactate 1.9 (0.20-2.00) mmol/L Sodium (136-145) mmol/L Potassium (3.5-5.1) mmol/L Chloride (98-107) mmol/L Carbon Dioxide (21.0-32.0) mmol/L BUN (7.0-18.0) mg/dL Creatinine (0.6-1.0) mg/dL Est Cr Clr Drug Dosing mL/min Estimated GFR (MDRD) ml/min Glucose (74-106) mg/dL Calcium (8.5-10.1) mg/dL Total Bilirubin (0.2-1.0) mg/dL AST (15-37) IU/L ALT (14-63) IU/L Alkaline Phosphatase (46-116) U/L Total Protein (6.4-8.2) g/dL Albumin (3.4-5.0) g/dL Globulin (2.6-4.0) g/dL Albumin/Globulin Ratio (0.9-1.6) Lipase (73-393) U/L Urine Color YELLOW Urine Appearance CLEAR Urine pH 5.5 (5.0-8.0) Ur Specific [place] 1.020 (1.001-1.035) Urine Protein NEGATIVE (NEGATIVE) mg/dL Urine Glucose (UA) NEGATIVE (NEGATIVE) mg/dL Urine Ketones NEGATIVE (NEGATIVE) mg/dL Urine Occult Blood NEGATIVE (NEGATIVE) Urine Nitrite NEGATIVE (NEGATIVE) Urine Bilirubin NEGATIVE (NEGATIVE) Urine Urobilinogen 0.2 (<2.0) EU/dL Ur Leukocyte Esterase NEGATIVE (NEGATIVE) 02/11/19 Range/Units 05:33 WBC (4.0-11.0) K/uL RBC (4.30-5.90) M/uL Hgb (12.0-16.0) g/dL Hct (36.0-46.0) % MCV (80.0-98.0) fL MCH (27.0-32.0) pg MCHC (31.0-37.0) g/dL RDW Std Deviation (28.0-62.0) fl RDW Coeff of [place] (11.0-15.0) % Plt Count (150-400) K/uL MPV (7.40-12.00) fL Neut % (Auto) (48.0-80.0) % Lymph % (Auto) (16.0-40.0) % [place] % (Auto) (0.0-15.0) % Eos % (Auto) (0.0-7.0) % Baso % (Auto) (0.0-1.5) % Neut # (Auto) (1.4-5.7) K/uL Lymph # (Auto) (0.6-2.4) K/uL [place] # (Auto) (0.0-0.8) K/uL Eos # (Auto) (0.0-0.7) K/uL Baso # (Auto) (0.0-0.1) K/uL Nucleated RBC % /100WBC Nucleated RBCs # K/uL INR Lactate (0.20-2.00) mmol/L Sodium 145 (136-145) mmol/L Potassium 4.4 (3.5-5.1) mmol/L Chloride 110 H (98-107) mmol/L Carbon Dioxide 26.2 (21.0-32.0) mmol/L BUN 14 (7.0-18.0) mg/dL Creatinine 1.3 H (0.6-1.0) mg/dL Est Cr Clr Drug Dosing 45.87 mL/min Estimated GFR (MDRD) 42.1 ml/min Glucose 99 (74-106) mg/dL Calcium 7.9 L (8.5-10.1) mg/dL Total Bilirubin 1.1 H (0.2-1.0) mg/dL AST 22 (15-37) IU/L ALT 22 (14-63) IU/L Alkaline Phosphatase 53 (46-116) U/L Total Protein 5.8 L (6.4-8.2) g/dL Albumin 2.8 L (3.4-5.0) g/dL Globulin 3.0 (2.6-4.0) g/dL Albumin/Globulin Ratio 0.9 (0.9-1.6) Lipase (73-393) U/L Urine Color Urine Appearance Urine pH (5.0-8.0) Ur Specific [place] (1.001-1.035) Urine Protein (NEGATIVE) mg/dL Urine Glucose (UA) (NEGATIVE) mg/dL Urine Ketones (NEGATIVE) mg/dL Urine Occult Blood (NEGATIVE) Urine Nitrite (NEGATIVE) Urine Bilirubin (NEGATIVE) Urine Urobilinogen (<2.0) EU/dL Ur Leukocyte Esterase (NEGATIVE) Med Orders - Current: Current Medications Heparin Sodium (Porcine) (Heparin Sodium) 5,000 units SUBCUT Q8H [facility] Last Admin: 02/11/19 06:03 Dose: 5,000 units Piperacillin Sod/Tazobactam (Sod 3.375 gm/ Sodium Chloride) 50 mls @ 100 mls/ hr IV Q6H [facility] Last Admin: 02/11/19 05:58 Dose: 100 mls/hr Sodium Chloride (Normal Saline) 1,000 mls @ 150 mls/hr IV ASDIRECTED [facility] Last Infusion: 02/11/19 09:36 Dose: Infused Ketorolac Tromethamine (Toradol) 30 mg IVPUSH Q6H PRN PRN Reason: Pain Morphine Sulfate (Morphine) 2 mg IVPUSH Q2H PRN PRN Reason: Pain (severe 7-10) Stop: 02/11/19 22:29 Last Admin: 02/11/19 09:51 Dose: 2 mg Ondansetron HCl (Zofran) 4 mg IVPUSH Q4H PRN PRN Reason: Nausea Discontinued Medications Hydromorphone HCl (Dilaudid) 1 mg IVPUSH ONETIME ONE Stop: 02/10/19 17:00 Last Admin: 02/10/19 17:14 Dose: 1 mg Sodium Chloride (Normal Saline) 1,000 mls @ 999 mls/hr IV .Bolus ONE Stop: 02/10/19 18:00 Last Admin: 02/10/19 17:10 Dose: 999 mls/hr Piperacillin Sod/Tazobactam (Sod 4.5 gm/ Sodium Chloride) 100 mls @ 100 mls/hr IV ONETIME ONE Stop: 02/10/19 18:03 Last Admin: 02/10/19 17:35 Dose: 100 mls/hr Potassium Chloride/Sodium Chloride (Normal Saline With 40 Meq Kcl) 1,000 mls @ 150 mls/hr IV ASDIRECTED [facility] Stop: 02/11/19 04:54 Last Admin: 02/10/19 23:44 Dose: 150 mls/hr Ketorolac Tromethamine (Toradol) 30 mg IVPUSH ONETIME ONE Stop: 02/10/19 17:01 Last Admin: 02/10/19 17:13 Dose: 30 mg Ondansetron HCl (Zofran) 4 mg IVPUSH ONETIME ONE Stop: 02/10/19 17:01 Last Admin: 02/10/19 17:11 Dose: 4 mg - Exam General: Alert, Oriented, Cooperative, No Acute Distress Lungs: Clear to Auscultation, Normal Respiratory Effort. No: Crackles, Wheezing Cardiovascular: Regular Rate, Regular Rhythm GI/Abdominal Exam: Other (soft, tender LLQ. No rebound. ) Extremities: Normal Inspection, No Pedal Edema - Problem List Review Problem List Initiated/Reviewed/Updated: Yes - My Orders Last 24 Hours: My Active Orders 02/11/19 10:34 Ketorolac [Toradol] 30 mg IVPUSH Q6H PRN 02/12/19 05:11 CBC WITH AUTO DIFF [HEME] AM COMPREHENSIVE METABOLIC PN,CMP [CHEM] AM - Plan Plan:: A: 1. acute diverticulitis 2. acute kidney injury 3. leukocytosis P: 1. acute diverticulitis, improving. Continue NPO except ice chips. Appreciate general surgery recommendations. Will continue with sozyn and pain control. Will need a total of 3 week antibiotics as outpatient including this hospitalization. 2. RAEGAN. Will go up on fluids to NS 150 ml/hr. Continue to monitor. Dispo: likely tomorrow.
[2019-02-11] MEDS: Sodium Chloride 0.9% 1,000 ML IV SCH ×2 (11:47→20:33)
[2019-02-11] MEDS: Ondansetron 4 MG/2 ML SDV IVPUSH PRN (21:59)
[2019-02-12] MEDS: Sodium Chloride 0.9% 1,000 ML IV SCH (03:47)
[2019-02-12] MEDS: Piperacillin/Tazobactam 3.375 GM in Sodium Chloride 0.9% 50 ML IV SCH ×2 (05:45→11:05)
[2019-02-12] MEDS: Heparin Sodium 5,000 Units/ML Vial SUBCUT SCH ×2 (05:46→14:36)
[2019-02-12] MEDS: Ondansetron 4 MG/2 ML SDV IVPUSH PRN (05:52)
[2019-02-12 06:31] LABS: POTASSIUM,K 3.5 mmol/L (3.5-5.1)
[2019-02-12] MEDS ORDERED: Sodium Chloride 0.9% 1,000 ML IV SCH (10:00)
[2019-02-12] MEDS ORDERED: metroNIDAZOLE 250 MG Tab PO SCH (11:30)
[2019-02-12] MEDS ORDERED: Ondansetron 4 MG Tab.DIS PO SCH (11:30)
--- NOTE | 2019-02-12 13:08 | PCM.SURGPN ---
- General Info Date of Service: 02/12/19 POD#: 3 Pain Score: 3 - Review of Systems General: Reports: No Symptoms (felt a bit nausea; pain much improved) - Patient Data Vitals - Most Recent: Last Vital Signs Temp 98.3 F 02/12/19 11:52 Pulse 69 02/12/19 11:52 Resp 14 02/12/19 11:52 BP 137/86 02/12/19 11:52 Pulse Ox 96 02/12/19 11:52 Weight - Most Recent: 175 lb 6 oz I&O - Last 24 Hours: Intake & Output 02/11/19 02/12/19 02/12/19 22:59 06:59 14:59 Intake Total 3169 1099 Output Total 700 1800 Balance 2469 -701 Lab Results Last 24 Hrs: Laboratory Results - last 24 hr 02/12/19 02/12/19 Range/Units 05:52 05:52 WBC 6.59 (4.0-11.0) K/uL RBC 3.71 L (4.30-5.90) M/uL Hgb 11.4 L (12.0-16.0) g/dL Hct 33.7 L (36.0-46.0) % MCV 90.8 (80.0-98.0) fL MCH 30.7 (27.0-32.0) pg MCHC 33.8 (31.0-37.0) g/dL RDW Std Deviation 41.4 (28.0-62.0) fl RDW Coeff of Rosa 13 (11.0-15.0) % Plt Count 153 (150-400) K/uL MPV 9.10 (7.40-12.00) fL Neut % (Auto) 80.1 H (48.0-80.0) % Lymph % (Auto) 10.8 L (16.0-40.0) % [place] % (Auto) 8.0 (0.0-15.0) % Eos % (Auto) 0.6 (0.0-7.0) % Baso % (Auto) 0.5 (0.0-1.5) % Neut # (Auto) 5.3 (1.4-5.7) K/uL Lymph # (Auto) 0.7 (0.6-2.4) K/uL [place] # (Auto) 0.5 (0.0-0.8) K/uL Eos # (Auto) 0.0 (0.0-0.7) K/uL Baso # (Auto) 0.0 (0.0-0.1) K/uL Nucleated RBC % 0.0 /100WBC Nucleated RBCs # 0 K/uL Sodium 142 (136-145) mmol/L Potassium 3.5 (3.5-5.1) mmol/L Chloride 108 H (98-107) mmol/L Carbon Dioxide 24.0 (21.0-32.0) mmol/L BUN 10 (7.0-18.0) mg/dL Creatinine 1.1 H (0.6-1.0) mg/dL Est Cr Clr Drug Dosing 54.21 mL/min Estimated GFR (MDRD) 51.0 ml/min Glucose 80 (74-106) mg/dL Calcium 8.1 L (8.5-10.1) mg/dL Total Bilirubin 1.0 (0.2-1.0) mg/dL AST 31 (15-37) IU/L ALT 41 (14-63) IU/L Alkaline Phosphatase 56 (46-116) U/L Total Protein 6.3 L (6.4-8.2) g/dL Albumin 3.0 L (3.4-5.0) g/dL Globulin 3.3 (2.6-4.0) g/dL Albumin/Globulin Ratio 0.9 (0.9-1.6) David Results Last 24 Hrs: Microbiology 02/10/19 17:09 Aerobic Blood Culture - Preliminary Blood - Venous - Lab Draw NO GROWTH AFTER 1 DAY Anaerobic Blood Culture - Preliminary NO GROWTH AFTER 1 DAY 02/10/19 17:05 Aerobic Blood Culture - Preliminary Blood - Venous NO GROWTH AFTER 1 DAY Anaerobic Blood Culture - Preliminary NO GROWTH AFTER 1 DAY Med Orders - Current: Current Medications Heparin Sodium (Porcine) (Heparin Sodium) 5,000 units SUBCUT Q8H [facility] Last Admin: 02/12/19 05:46 Dose: 5,000 units Piperacillin Sod/Tazobactam (Sod 3.375 gm/ Sodium Chloride) 50 mls @ 100 mls/ hr IV Q6H [facility] Last Admin: 02/12/19 11:05 Dose: 100 mls/hr Sodium Chloride (Normal Saline) 1,000 mls @ 100 mls/hr IV ASDIRECTED [facility] Last Admin: 02/12/19 10:27 Dose: 100 mls/hr Ketorolac Tromethamine (Toradol) 30 mg IVPUSH Q6H PRN PRN Reason: Pain Last Admin: 02/11/19 16:37 Dose: 30 mg Metronidazole (Metronidazole) 500 mg PO Q8H [facility] Last Admin: 02/12/19 12:00 Dose: 500 mg Ondansetron HCl (Zofran Odt) 4 mg PO Q8H [facility] Last Admin: 02/12/19 12:01 Dose: 4 mg Discontinued Medications Hydromorphone HCl (Dilaudid) 1 mg IVPUSH ONETIME ONE Stop: 02/10/19 17:00 Last Admin: 02/10/19 17:14 Dose: 1 mg Sodium Chloride (Normal Saline) 1,000 mls @ 999 mls/hr IV .Bolus ONE Stop: 02/10/19 18:00 Last Admin: 02/10/19 17:10 Dose: 999 mls/hr Piperacillin Sod/Tazobactam (Sod 4.5 gm/ Sodium Chloride) 100 mls @ 100 mls/hr IV ONETIME ONE Stop: 02/10/19 18:03 Last Admin: 02/10/19 17:35 Dose: 100 mls/hr Sodium Chloride (Normal Saline) 1,000 mls @ 150 mls/hr IV ASDIRECTED [facility] Last Admin: 02/12/19 03:47 Dose: 150 mls/hr Potassium Chloride/Sodium Chloride (Normal Saline With 40 Meq Kcl) 1,000 mls @ 150 mls/hr IV ASDIRECTED [facility] Stop: 02/11/19 04:54 Last Admin: 02/10/19 23:44 Dose: 150 mls/hr Ketorolac Tromethamine (Toradol) 30 mg IVPUSH ONETIME ONE Stop: 02/10/19 17:01 Last Admin: 02/10/19 17:13 Dose: 30 mg Morphine Sulfate (Morphine) 2 mg IVPUSH Q2H PRN PRN Reason: Pain (severe 7-10) Stop: 02/11/19 22:29 Last Admin: 02/11/19 09:51 Dose: 2 mg Ondansetron HCl (Zofran) 4 mg IVPUSH ONETIME ONE Stop: 02/10/19 17:01 Last Admin: 02/10/19 17:11 Dose: 4 mg Ondansetron HCl (Zofran) 4 mg IVPUSH Q4H PRN PRN Reason: Nausea Last Admin: 02/12/19 05:52 Dose: 4 mg - Exam GI/Abdominal Exam: Soft (minimal tenderness, no rebound) - Problem List Review Problem List Initiated/Reviewed/Updated: Yes - My Orders Last 24 Hours: Active Orders 24 hr Category Date Time Status Clear Liquid Diet [DIET] Diet 02/12/19 Breakfast Active BMP [BASIC METABOLIC PANEL,BMP] [CHEM] AM Lab 02/13/19 05:11 Ordered CBC WITH AUTO DIFF [HEME] AM Lab 02/13/19 05:11 Ordered Ondansetron [Zofran ODT] Med 02/12/19 11:30 Active 4 mg PO Q8H Sodium Chloride 0.9% [Normal Saline] 1,000 ml Med 02/12/19 10:00 Active IV ASDIRECTED metroNIDAZOLE Med 02/12/19 11:30 Active 500 mg PO Q8H Medication Orders Heparin Sodium (Porcine) (Heparin Sodium) 5,000 units SUBCUT Q8H [facility] Last Admin: 02/12/19 05:46 Dose: 5,000 units Admin: 02/11/19 22:00 Dose: 5,000 units Admin: 02/11/19 14:46 Dose: 5,000 units Admin: 02/11/19 06:03 Dose: 5,000 units Admin: 02/10/19 23:12 Dose: 5,000 units Piperacillin Sod/Tazobactam (Sod 3.375 gm/ Sodium Chloride) 50 mls @ 100 mls/ hr IV Q6H [facility] Last Admin: 02/12/19 11:05 Dose: 100 mls/hr Infusion: 02/12/19 06:15 Dose: 100 mls/hr Admin: 02/12/19 05:45 Dose: 100 mls/hr Infusion: 02/12/19 00:22 Dose: 100 mls/hr Admin: 02/11/19 23:52 Dose: 100 mls/hr Infusion: 02/11/19 17:12 Dose: 100 mls/hr Admin: 02/11/19 16:42 Dose: 100 mls/hr Infusion: 02/11/19 11:33 Dose: 100 mls/hr Admin: 02/11/19 11:03 Dose: 100 mls/hr Infusion: 02/11/19 06:28 Dose: 100 mls/hr Admin: 02/11/19 05:58 Dose: 100 mls/hr Infusion: 02/10/19 23:39 Dose: 100 mls/hr Admin: 02/10/19 23:09 Dose: 100 mls/hr Sodium Chloride (Normal Saline) 1,000 mls @ 100 mls/hr IV ASDIRECTED [facility] Last Admin: 02/12/19 10:27 Dose: 100 mls/hr Ketorolac Tromethamine (Toradol) 30 mg IVPUSH Q6H PRN PRN Reason: Pain Last Admin: 02/11/19 16:37 Dose: 30 mg Metronidazole (Metronidazole) 500 mg PO Q8H [facility] Last Admin: 02/12/19 12:00 Dose: 500 mg Ondansetron HCl (Zofran Odt) 4 mg PO Q8H [facility] Last Admin: 02/12/19 12:01 Dose: 4 mg - Assessment Assessment (Free Text/Narrative):: continue to improve clinically; by all mean, this is recurrent diverticulitis w microperf and abscess; would expect slow resolution; would continue abx/npo; may try po diet in the morning if pt feels like it. WBC 6; avss; abd exam minimal tenderness; if home 1) abx 3 wks, pt does not like flagyl. 2) colonoscopy 2 months 3) surgical consult for recurrent diverticulitis - Plan Plan (Free Text/Narrative):: continue to improve clinically; by all mean, this is recurrent diverticulitis w microperf and abscess; would expect slow resolution; would continue abx/npo; may try po diet in the morning if pt feels like it. WBC 6; avss; abd exam minimal tenderness; if home 1) abx 3 wks, pt does not like flagyl. 2) colonoscopy 2 months 3) surgical consult for recurrent diverticulitis
--- NOTE | 2019-02-12 15:09 | PCM.DCSUM1 ---
Discharge Summary - Hospital Course Brief History: 58 yo female with pmh of recurrent diverticulitis who presents with one day history of abdominal pain and chills. She denies any diarreha or blood in the stool. Her last colonoscopy was five years ago. She reports getting diverticulitis as much as 4 times a year. Diagnosis: Stroke: No - Discharge Data Discharge Date: 02/12/19 Discharge Disposition: Home, Self-Care 01 Condition: Good - Referral to Home Health Primary Care Physician: PCP Unknown - Patient Instructions Diet: Clear Liquid Diet (slowly advance to Full liquid the soft. Low fiber) Showering/Bathing: August Shower Notify Provider of: Fever, Increased Pain, Swelling and Redness, Drainage, Nausea and/or Vomiting - Discharge Plan *PRESCRIPTION DRUG MONITORING PROGRAM REVIEWED*: Not Applicable *COPY OF PRESCRIPTION DRUG MONITORING REPORT IN PATIENT ELSY: Not Applicable Prescriptions/Med Rec: Ibuprofen 400 mg PO TID PRN #1 tablet PRN Reason: Pain levoFLOXacin [Levaquin] 750 mg PO DAILY #11 tab metroNIDAZOLE [Flagyl] 500 mg PO Q8H #33 tab Ondansetron [Zofran ODT] 4 mg PO Q8H PRN #40 tab.dis PRN Reason: Nausea Home Medications: Home Meds Olmesartan [Benicar] 10 mg PO DAILY 03/20/15 [History] hydroCHLOROthiazide [Hydrochlorothiazide] 12.5 mg PO DAILY 03/20/15 [History] Aspirin [Halfprin] 81 mg PO DAILY 10/01/15 [History] Ibuprofen 400 mg PO TID PRN #1 tablet 02/12/19 [Rx] Ondansetron [Zofran ODT] 4 mg PO Q8H PRN #40 tab.dis 02/12/19 [Rx] levoFLOXacin [Levaquin] 750 mg PO DAILY #11 tab 02/12/19 [Rx] metroNIDAZOLE [Flagyl] 500 mg PO Q8H #33 tab 02/12/19 [Rx] Patient Handouts: Diverticulitis, [id number], Abdominal Pain, Adult, Ondansetron tablets, Ibuprofen tablets and capsules, Levofloxacin tablets, Metronidazole tablets or capsules Referrals: Mirna Gould NP [Ordering Only Provider] - 03/05/19 1:00 pm - Discharge Summary/Plan Comment DC Time >30 min.: No Discharge Summary/Plan Comment: Admitting Diagnoses: Diverticulitis with microperforation Discharge Diagnoses: Diverticulitis with microperforation Other PMH: HTN Rach was admitted and treated with bowel rest as well as IVFs and antibiotics, Zosyn for diverticulitis with microperforation. Dr Schneider, consulted from General surgery. recommended conservative therapy. She slowly improved. She was requesting discharge home. [place] somewhat nauseated, but tolerated CL and Flagyl pO with Zofran. Pain was well managed without pain medications. She was discharged home with Flagyl and Levaquin for 10 more days, total of 14 days treatment. She declined appointment with surgery here and will arrange appointment with GI specialist at home per herself. She understands the need for colonoscopy in 6 or so weeks as well as discussion with GI specialist regarding surgical intervention due to number of episodes she is having. She will have follow up with PCP in 1 week as well. She is to keep CL to [place] diet until Monday and then slowly advance to regular low fiber diet. She is to return to ED or clinic if concerns should return. - Patient Data Vitals - Most Recent: Last Vital Signs Temp 98.3 F 02/12/19 11:52 Pulse 69 02/12/19 11:52 Resp 14 02/12/19 11:52 BP 137/86 02/12/19 11:52 Pulse Ox 96 02/12/19 11:52 Weight - Most Recent: 79.549 kg I&O - Last 24 hours: Intake & Output 02/12/19 02/12/19 02/12/19 06:59 14:59 22:59 Intake Total 1099 Output Total 1800 Balance -701 Lab Results - Last 24 hrs: Laboratory Results - last 24 hr 02/12/19 02/12/19 Range/Units 05:52 05:52 WBC 6.59 (4.0-11.0) K/uL RBC 3.71 L (4.30-5.90) M/uL Hgb 11.4 L (12.0-16.0) g/dL Hct 33.7 L (36.0-46.0) % MCV 90.8 (80.0-98.0) fL MCH 30.7 (27.0-32.0) pg MCHC 33.8 (31.0-37.0) g/dL RDW Std Deviation 41.4 (28.0-62.0) fl RDW Coeff of Rosa 13 (11.0-15.0) % Plt Count 153 (150-400) K/uL MPV 9.10 (7.40-12.00) fL Neut % (Auto) 80.1 H (48.0-80.0) % Lymph % (Auto) 10.8 L (16.0-40.0) % [place] % (Auto) 8.0 (0.0-15.0) % Eos % (Auto) 0.6 (0.0-7.0) % Baso % (Auto) 0.5 (0.0-1.5) % Neut # (Auto) 5.3 (1.4-5.7) K/uL Lymph # (Auto) 0.7 (0.6-2.4) K/uL [place] # (Auto) 0.5 (0.0-0.8) K/uL Eos # (Auto) 0.0 (0.0-0.7) K/uL Baso # (Auto) 0.0 (0.0-0.1) K/uL Nucleated RBC % 0.0 /100WBC Nucleated RBCs # 0 K/uL Sodium 142 (136-145) mmol/L Potassium 3.5 (3.5-5.1) mmol/L Chloride 108 H (98-107) mmol/L Carbon Dioxide 24.0 (21.0-32.0) mmol/L BUN 10 (7.0-18.0) mg/dL Creatinine 1.1 H (0.6-1.0) mg/dL Est Cr Clr Drug Dosing 54.21 mL/min Estimated GFR (MDRD) 51.0 ml/min Glucose 80 (74-106) mg/dL Calcium 8.1 L (8.5-10.1) mg/dL Total Bilirubin 1.0 (0.2-1.0) mg/dL AST 31 (15-37) IU/L ALT 41 (14-63) IU/L Alkaline Phosphatase 56 (46-116) U/L Total Protein 6.3 L (6.4-8.2) g/dL Albumin 3.0 L (3.4-5.0) g/dL Globulin 3.3 (2.6-4.0) g/dL Albumin/Globulin Ratio 0.9 (0.9-1.6) KEEGAN Results - Last 24 hrs: Microbiology 02/10/19 17:09 Aerobic Blood Culture - Preliminary Blood - Venous - Lab Draw NO GROWTH AFTER 1 DAY Anaerobic Blood Culture - Preliminary NO GROWTH AFTER 1 DAY 02/10/19 17:05 Aerobic Blood Culture - Preliminary Blood - Venous NO GROWTH AFTER 1 DAY Anaerobic Blood Culture - Preliminary NO GROWTH AFTER 1 DAY Med Orders - Current: Current Medications Heparin Sodium (Porcine) (Heparin Sodium) 5,000 units SUBCUT Q8H [facility] Last Admin: 02/12/19 14:36 Dose: 5,000 units Piperacillin Sod/Tazobactam (Sod 3.375 gm/ Sodium Chloride) 50 mls @ 100 mls/ hr IV Q6H [facility] Last Admin: 02/12/19 11:05 Dose: 100 mls/hr Sodium Chloride (Normal Saline) 1,000 mls @ 100 mls/hr IV ASDIRECTED [facility] Last Admin: 02/12/19 10:27 Dose: 100 mls/hr Ketorolac Tromethamine (Toradol) 30 mg IVPUSH Q6H PRN PRN Reason: Pain Last Admin: 02/11/19 16:37 Dose: 30 mg Metronidazole (Metronidazole) 500 mg PO Q8H [facility] Last Admin: 02/12/19 12:00 Dose: 500 mg Ondansetron HCl (Zofran Odt) 4 mg PO Q8H [facility] Last Admin: 02/12/19 12:01 Dose: 4 mg Discontinued Medications Hydromorphone HCl (Dilaudid) 1 mg IVPUSH ONETIME ONE Stop: 02/10/19 17:00 Last Admin: 02/10/19 17:14 Dose: 1 mg Sodium Chloride (Normal Saline) 1,000 mls @ 999 mls/hr IV .Bolus ONE Stop: 02/10/19 18:00 Last Admin: 02/10/19 17:10 Dose: 999 mls/hr Piperacillin Sod/Tazobactam (Sod 4.5 gm/ Sodium Chloride) 100 mls @ 100 mls/hr IV ONETIME ONE Stop: 02/10/19 18:03 Last Admin: 02/10/19 17:35 Dose: 100 mls/hr Sodium Chloride (Normal Saline) 1,000 mls @ 150 mls/hr IV ASDIRECTED [facility] Last Admin: 02/12/19 03:47 Dose: 150 mls/hr Potassium Chloride/Sodium Chloride (Normal Saline With 40 Meq Kcl) 1,000 mls @ 150 mls/hr IV ASDIRECTED [facility] Stop: 02/11/19 04:54 Last Admin: 02/10/19 23:44 Dose: 150 mls/hr Ketorolac Tromethamine (Toradol) 30 mg IVPUSH ONETIME ONE Stop: 02/10/19 17:01 Last Admin: 02/10/19 17:13 Dose: 30 mg Morphine Sulfate (Morphine) 2 mg IVPUSH Q2H PRN PRN Reason: Pain (severe 7-10) Stop: 02/11/19 22:29 Last Admin: 02/11/19 09:51 Dose: 2 mg Ondansetron HCl (Zofran) 4 mg IVPUSH ONETIME ONE Stop: 02/10/19 17:01 Last Admin: 02/10/19 17:11 Dose: 4 mg Ondansetron HCl (Zofran) 4 mg IVPUSH Q4H PRN PRN Reason: Nausea Last Admin: 02/12/19 05:52 Dose: 4 mg - Exam General: Reports: Alert, Oriented, Cooperative Lungs: Reports: Clear to Auscultation, Normal Respiratory Effort Cardiovascular: Reports: Regular Rate, Regular Rhythm GI/Abdominal Exam: Normal Bowel Sounds, Soft, Tender (mild tenderness low left quadrant) Wound/Incisions: Reports: Healing Well Neurological: Reports: No New Focal Deficit Psy/Mental Status: Reports: Alert, Normal Affect, Normal Mood
[2019-02-12 16:31] VITALS: BP 162/87; PULSE 62
== END 2019-02-12 16:40 | disposition home or self-care (01) | DRG 392 ==
LOC: MW.ED 16:53 → MW.MS 19:38 → INTOOBSV 19:38 → OBSVTOIN 02-11 10:08 → MW.MS 02-11 10:09
PROVIDERS: ADMIT Internal Medicine; ATTEND Internal Medicine
DX: K57.20 Diverticulitis of large intestine with perforation and abscess without bleeding (principal); N17.9 Acute kidney failure, unspecified; I10 Essential (primary) hypertension; Z79.899 Other long term (current) drug therapy; Z90.49 Acquired absence of other specified parts of digestive tract; Z79.82 Long term (current) use of aspirin; Z90.710 Acquired absence of both cervix and uterus
CPT/HCPCS: 36415; 71045; 71045-26; 74176; 74176-26; 80053; 81003; 83605; 83690; 85025; 85610; 87040; 96365; 96375; 99284; 99285-25; A9270-GY; J1170; J1644; J1885; J2270; J2405; J2543; J3480; J7030; J7040; J7050